=== PATIENT | male | born 1990 | race Caucasian/White ===

== ENCOUNTER 2016-11-18 13:56 | Emergency (ER) | payer BC ==
[~2016-11-18] VITALS: Ht 172.7 cm; Wt 86.4 kg
[2016-11-18 14:00] VITALS: TEMP 98.3
[2016-11-18 15:18] LABS: BASO % 0.4 % (0.0-2.0); EOS % 0.5 % (0-4.0); GRAN # 5.1 (1.4-6.5); GRAN % 66.7 % (42.2-75.2); HEMATOCRIT 45.3 % (42.0-52.0); HEMOGLOBIN 15.4 g/dl (13.5-18.0); LYMPH # 1.4 (1.2-3.4); LYMPH % 17.8 % (20.0-51.0); MEAN CELL VOLUME 84 fl (80.0-100.0); MEAN CORPUSCULAR HEMOGLOBIN 29 pg (27.0-31.0); MEAN CORPUSCULAR HGB CONC 34 g/dl (33.0-37.0); MEAN PLATELET VOLUME 9.5 fl (7.4-10.4); MONO # 1.1 (0.1-0.6); MONO % 13.8 % (1.7-9.3); PLATELET COUNT 178 K/mm3 (130-400); RED BLOOD COUNT 5.39 M/mm3 (4.20-5.60); WHITE BLOOD COUNT 7.6 K/mm3 (4.8-10.8)
[2016-11-18 15:21] LABS: ADJUSTED CALCIUM 8.8 mg/dL (8.4-10.2); ALBUMIN 3.9 gm/dL (3.5-5.0); BILIRUBIN,TOTAL 1.1 mg/dL (0.0-1.0); CALCIUM 8.7 mg/dL (8.4-10.2); CREATININE, serum 0.95 mg/dL (0.66-1.25); POTASSIUM 3.6 mmol/L (3.4-5.0); TOTAL PROTEIN 7.1 gm/dL (6.4-8.2)
[2016-11-18] MEDS ORDERED: ZOFRAN ODT4 MG PO (15:38)
[2016-11-18] MEDS ORDERED: NORCO 325 MG-51 TAB PO (15:38)
[2016-11-18 16:10] VITALS: BP 138/77; PULSE 88
[2016-11-19] MEDS ORDERED: PRIL40 PO (13:07)
== END 2016-11-18 16:10 | disposition home or self-care (01) ==
LOC: COL.ER 13:56
PROVIDERS: Nurse Practitioner
DX: K92.2 Gastrointestinal hemorrhage, unspecified (principal); E11.9 Type 2 diabetes mellitus without complications; J45.909 Unspecified asthma, uncomplicated; Z98.890 Other specified postprocedural states
CPT/HCPCS: J2270; J2405; J7030

== ENCOUNTER 2016-11-19 11:06 | Day surgery (SDC) | payer BC ==
[~2016-11-19] VITALS: Ht 175.3 cm; Wt 87.2 kg
[~2016-11-19 11:06] MED LIST: NORCO 325 MG-51 TAB PO; ZOFRAN ODT4 MG PO
[2016-11-19 11:25] VITALS: BP 137/85; PULSE 75; TEMP 97.9
[2016-11-19 12:50] VITALS: BP 119/73; PULSE 75; TEMP 98.6
[2016-11-19 13:05] VITALS: BP 124/81; PULSE 78
[2016-11-19] MEDS ORDERED: PRIL40 PO (13:07)
[2016-11-19 13:20] VITALS: BP 126/78; PULSE 78
== END 2016-11-19 13:31 | disposition home or self-care (01) ==
LOC: SDCO 11:06
DX: K25.7 Chronic gastric ulcer without hemorrhage or perforation (principal); R19.5 Other fecal abnormalities; K92.0 Hematemesis; R11.2 Nausea with vomiting, unspecified; E11.9 Type 2 diabetes mellitus without complications; J45.909 Unspecified asthma, uncomplicated
CPT/HCPCS: J2250; J2405; J3010; J7030

== ENCOUNTER → 2021-09-27 | Outpatient (CLI) | payer OTHER ==
[~2021-09-27] MED LIST changes: +PRIL40 PO
== END ==
LOC: MC.RAD 09:47
DX: N63.42 Unspecified lump in left breast, subareolar (principal)

== ENCOUNTER → 2022-03-07 | Outpatient (CLI) | payer OTHER | LOC: COL.RAD 14:00 | DX: M67.813 Other specified disorders of tendon, right shoulder (principal); S43.491A Other sprain of right shoulder joint, initial encounter ==